=== PATIENT | male | born 1990 | race Caucasian/White ===

== ENCOUNTER 2019-09-28 17:28 | Emergency (ER) | payer OTHER, MEDICARE, SELFPAY ==
--- NOTE | ~2019-09-28 | XR_ITS ---
EXAMINATION: XR foot LT min 3V EXAM DATE: 09/28/2019 18:22 INDICATION: Initial encounter following injury, with pain of the left foot, first toe. Tripped. TECHNIQUE: Left foot dorsoplantar, lateral and oblique projections obtained and reviewed. There is n o prior study for comparison. FINDINGS: Left metatarsal bones unremarkable. Possible acute nondisplaced fracture at the base of the left first proximal phalanx at the MCP joint, please clinically correlate. There are no acute fra ctures or dislocations identified. There is no subcutaneous gas. The soft tissue is unremarkable. There are no radiopaque foreign bodies. Old left distal tibia and fibular fractures. IMPRESSION: Possible acute nondisplaced left first proximal phalangeal base fracture. Reviewed, dictated and finalized at location A. ICULTURAL THERAPIST IMPRESSION: Possible acute nondisplaced left first proximal phalangeal base fra cture.
[2019-09-28 18:03] VITALS: BP 122/79; PULSE 105; RESP 19; TEMP 37.2; O2SAT 100
--- NOTE | 2019-09-28 19:45 | ED.GENADULT ---
HPI - General Adult General Chief complaint: Extremity Injury, Lower Stated complaint: L foot injury Time Seen by Provider: 09/28/19 18:09 Source: patient Mode of arrival: ambulatory Limitations: no limitations History of Present Illness HPI narrative: Patient is a 29-year-old male who presents with injury to the left great toe that occurred after striking the foot a day ago patient notes aching pain with bruising and swelling worse with weightbearing and activity patient has been taking his home pain medications with relief denies other injuries or complaints Related Data Allergies Allergy/AdvReac Type Severity Reaction Status Date / Time metoclopramide [From Reglan] Allergy Hallucinati Verified 09/28/19 18:50 ng morphine Allergy Other Verified 09/28/19 18:49 Review of Systems Review of Systems: Narrative: CONSTITUTIONAL: Denies fever, chills, or sweats. SKIN: Positive for bruising and swelling MUSCULOSKELETAL: Positive for left great toe pain NEUROLOGIC: Denies numbness, or weakness. PMFSH Past Medical History Medical History (Updated 09/28/19 @ 19:48 by Thor Blackman PA-C) Chronic pain Social History Social History Gender identity (if verbalized by the patient): Male Exam Narrative: Exam Narrative: GENERAL: Well-appearing, well-nourished, and in no acute distress. HEAD: Normocephalic, atraumatic. EYES: PERRLA and EOMI. ENT: Nares clear, no rhinorrhea or epistaxis. Mucous membranes moist. EXTREMITIES: Bruising swelling and tenderness involving the left great toe SKIN: Warm, dry, no rash. NEURO: No focal deficits. Alert and oriented x3. Neurovascularly intact PSYCH: Normal mood and affect. Course Course Emergency Course: Patient in the room aware of case findings treatment plan and diagnosis agreeing to follow-up as directed or to return if symptoms worsen or concerns Vital Signs Vital signs: Vital Signs Temperature 99 F 09/28/19 18:03 Pulse Rate 105 H 09/28/19 18:03 Respiratory Rate 19 09/28/19 18:03 Blood Pressure 122/79 09/28/19 18:03 Pulse Oximetry 100 09/28/19 18:03 Temperature 99 F 09/28/19 18:03 Pulse Rate 105 H 09/28/19 18:03 Respiratory Rate 19 09/28/19 18:03 Blood Pressure 122/79 09/28/19 18:03 Pulse Oximetry 100 09/28/19 18:03 Medical Decision Making MDM Narrative Medical decision making narrative: Patients injury or pain is consistent with musculoskeletal etiology. No signs of neurological or vascular compromise on exam. Compartments and tisues are soft without signs of compartment syndrome. Pain is felt appropriate for further evaluation on an outpatient basis. Vital Signs Vital Signs: Vital Signs Temperature 99 F 09/28/19 18:03 Pulse Rate 105 H 09/28/19 18:03 Respiratory Rate 19 09/28/19 18:03 Blood Pressure 122/79 09/28/19 18:03 Pulse Oximetry 100 09/28/19 18:03 Temperature 99 F 09/28/19 18:03 Pulse Rate 105 H 09/28/19 18:03 Respiratory Rate 19 09/28/19 18:03 Blood Pressure 122/79 09/28/19 18:03 Pulse Oximetry 100 09/28/19 18:03 Imaging Data Radiologist's impression: ITS Impressions Foot X-Ray 09/28/19 18:27 IMPRESSION: Possible acute nondisplaced left first proximal phalangeal base fracture. Discharge Plan Discharge Clinical Impression: Fracture of toe Patient Disposition: Home, Self-Care Condition: Stable Instructions: Antibiotic Form, Toe Fracture (ED) Additional Instructions: Wear postop shoe with limited weight on the affected leg until able to bear weight without pain. Ice and elevate extremity. Pain medication as needed and directed. Follow up with your doctor for further care in the next 7 days. Return if symptoms worsen or concerns or any increase in redness swelling pain or fever over 100.5 Follow-up/Referrals: Donta,Corinna Luz MD [Primary Care Provider] -
--- NOTE | 2019-09-28 20:06 | PC.NURSE ---
Pt refused to wear surgical shoe to exit. Stated he will wear when he gets home.
== END 2019-09-28 20:06 | disposition home or self-care (01) ==
PROVIDERS: Emergency Provider Emergency Medicine; PCP Internal Medicine
DX: S92.415A Nondisplaced fracture of proximal phalanx of left great toe, initial encounter for closed fracture (principal); W22.8XXA Striking against or struck by other objects, initial encounter
CPT/HCPCS: 73630; 99284

== ENCOUNTER 2023-04-23 14:50 | Outpatient (CLI) | payer OTHER, MEDICARE, SELFPAY ==
[2023-04-23 15:59] LABS: Alanine Aminotransferase 22 U/L (6-50); Albumin Level 4.4 g/dL (3.5-5.1); Alkaline Phosphatase 68 U/L (38-126); Aspartate Amino Transferase 27 U/L (17-59); Blood Urea Nitrogen 11 mg/dL (9-20); Calcium 9.6 mg/dL (8.4-10.2); Carbon Dioxide > 40 mmol/L (22-30); Chloride 97 mmol/L (98-107); Estimated Glomerular Filt Rate > 60; Glucose 88 mg/dL (65-110); Sodium 140 mmol/L (137-145)
[2023-04-23 16:08] LABS: Appearance Urine Turbid (Clear); Bacteria Urine 4+ /hpf; Bilirubin Urine Negative (Negative); Blood Urine 1+ (Negative); Color Urine Dark Yellow (Yellow); Glucose Urine UA Negative (Negative); Ketones Urine Negative (Negative); Leukocyte Esterase Ur 3+ LEU/UL (NEGATIVE); Need Manual Microscopic Reviewed; Nitrate Urine Positive (Negative); Protein Urine Negative (Negative); Squamous Epithelial Cell Urine Occasional /hpf (Few); Urobilinogen Urine 0.2 mg/dL (<2.0); WBC Urine >100 /hpf (0-3); pH Urine 7.5 (5.0-9.0)
[2023-04-23 16:14] LABS: Add Urine Microscopic? YES
[2023-04-23 16:29] LABS: Thyroid Stimulating Hormone 0.065 uIU/mL (0.465-4.680)
[2023-04-23 19:43] LABS: Free T4 Free Thyroxine 0.98 ng/mL (0.78-2.19)
[2023-04-26 16:18] LABS: Prostate Specific Antigen 4.4 ng/mL (< OR = 4.0)
[2023-04-29 14:48] LABS: Osmolality, Urine 411 mOsm/kg (50-1200)
== END 2023-04-23 14:51 | disposition home or self-care (01) ==
LOC: ANHLAB 14:52
PROVIDERS: PCP Nurse Practitioner Family; Visit Provider Internal Medicine
DX: E34.9 Endocrine disorder, unspecified (principal); K58.9 Irritable bowel syndrome, unspecified; E27.1 Primary adrenocortical insufficiency; N39.0 Urinary tract infection, site not specified; S06.9XAA Unspecified intracranial injury with loss of consciousness status unknown, initial encounter; Z90.49 Acquired absence of other specified parts of digestive tract
CPT/HCPCS: 36415; 80053; 81001; 83935; 84153; 84439; 84443; 87077; 87086; 87186; G0103

== ENCOUNTER 2023-05-12 22:43 | Emergency (ER) | payer OTHER, MEDICARE, SELFPAY ==
[2023-05-12 22:51] VITALS: BP 126/90; PULSE 84; RESP 14; TEMP 36.7; O2SAT 99
--- NOTE | 2023-05-13 02:19 | PC.NURSE ---
Patient walked up to triage desk and stated that he was leaving
== END 2023-05-13 04:22 | disposition left against medical advice (07) ==
PROVIDERS: PCP Nurse Practitioner Family
DX: L89.139 Pressure ulcer of right lower back, unspecified stage (principal)
CPT/HCPCS: 99199

== ENCOUNTER 2023-10-15 15:36 | Outpatient (NON) | payer OTHER, MEDICARE, SELFPAY ==
[2023-10-15 16:07] LABS: Appearance Urine Turbid (Clear); Bacteria Urine 4+ /hpf; Bilirubin Urine Negative (Negative); Blood Urine Negative (Negative); Color Urine Yellow (Yellow); Glucose Urine UA Negative (Negative); Ketones Urine Negative (Negative); Leukocyte Esterase Ur 3+ LEU/UL (Negative); Nitrate Urine Positive (Negative); Protein Urine Negative (Negative); Specific Grav Ur 1.017 (1.001-1.035); Squamous Epithelial Cell Urine Occasional /hpf (Few); Urobilinogen Urine 0.2 mg/dL (<2.0); WBC Urine 51-100 /hpf (0-3)
[2023-10-15 16:09] LABS: Amorphous Sediment Urine Moderate
[2023-10-15 16:10] LABS: Add Urine Microscopic? YES
== END 2023-10-15 15:37 | disposition home or self-care (01) ==
LOC: ANHLAB 15:38
PROVIDERS: PCP Nurse Practitioner Family; Visit Provider Nurse Practitioner Family
DX: N39.0 Urinary tract infection, site not specified (principal)
CPT/HCPCS: 87077; 87086; 87088; 87186

== ENCOUNTER 2025-04-04 02:07 | Day surgery (SDC) | payer OTHER, MEDICARE, SELFPAY ==
[2025-03-28 09:33] VITALS: BMI 16.7
--- NOTE | 2025-04-04 09:33 | WPDANESEPPF ---
Anes - Initial Pre Proc Eval Procedure: Operation Date: 04/04/25 10:30 Proposed Procedures p Esophagogastroduodenoscopy - Justin Montilla MD Date/Time: 04/04/25 09:33 Surgeon: Justin Montilla MD Pre Op Diagnosis: Difficulty swallowing with asphyxiation Patient Data Age: 34 Gender: M Height: 1.8 m Weight: 54.54 kg Allergies Allergy/AdvReac Type Severity Reaction Status Date / Time fludrocortisone (From Allergy Unknown Verified 04/04/25 09:56 Florinef) metoclopramide (From Reglan) Allergy Hallucinati Verified 04/04/25 09:56 ng morphine Allergy Other Verified 04/04/25 09:56 sulfamethoxazole (From Allergy Unknown Verified 04/04/25 09:56 Bactrim) trimethoprim (From Bactrim) Allergy Unknown Verified 04/04/25 09:56 Home Medications ?Medication ?Instructions ?Recorded ?Confirmed ?Type cetirizine 10 mg capsule (Zyrtec) 10 mg PO DAILY 12/16/22 04/04/25 History hyoscyamine sulfate 0.125 mg 0.125 mg PO BID 12/16/22 04/04/25 History tablet (Levsin) multivitamin 1 tablet PO DAILY 12/16/22 04/04/25 History naloxone 4 mg/actuation nasal 1 spray intranasal Q2M #2 ea 07/07/23 04/04/25 Rx spray (Narcan) syringe with needle 3 mL 23 x 1 #50 ea 07/12/23 02/02/25 Rx (BD Eclipse Luer-Elaine) testosterone cypionate 200 mg/mL 100 mg (0.5 mL) IM WEEKLY #10 mL 09/27/23 03/28/25 Rx intramuscular oil (Depo-Testosterone) Held on 07/28/24. Instructions: Order Change insulin syringe-needle U-100 0.5 #100 ea 10/04/23 02/02/25 Rx mL 30 gauge x 1/2 (BD Insulin Syringe Ultra-Fine) desmopressin 4 mcg/mL injection 4 mcg IM DAILY #10 mL 02/29/24 04/04/25 Rx solution desmopressin 4 mcg/mL injection See Rx Instructions .Route 10/02/24 03/28/25 Rx solution .COMPLEX #10 mL sodium chloride 1,000 mg soluble See Rx Instructions .Route 01/01/25 04/04/25 Rx tablet .COMPLEX #270 tabs fluconazole 150 mg tablet 150 mg PO ONCE #2 tabs 01/23/25 03/28/25 Rx hydrocortisone 20 mg tablet See Rx Instructions .Route 01/23/25 04/04/25 Rx .COMPLEX #24 tabs dexamethasone sodium phosphate 4 See Rx Instructions .Route 02/02/25 03/28/25 Rx mg/mL injection solution .COMPLEX #25 mL hydrocortisone 10 mg tablet See Rx Instructions .Route 02/02/25 04/04/25 Rx .COMPLEX #270 tabs ondansetron HCl 4 mg tablet 4 mg PO Q8H PRN nausea and 02/02/25 03/28/25 Rx vomiting #30 tabs oxybutynin chloride 10 mg See Rx Instructions .Route 02/02/25 04/04/25 Rx tablet,extended release 24 hr .COMPLEX #180 tabs desmopressin 0.2 mg tablet See Rx Instructions .Route 02/19/25 04/04/25 Rx .COMPLEX #60 tabs gabapentin 800 mg tablet 800 mg PO BID #180 tabs 02/26/25 04/04/25 Rx fentanyl 25 mcg/hr transdermal 1 patch transdermal Q48H #15 ea 03/28/25 04/04/25 Rx patch hydrocodone 7.5 mg-acetaminophen 1 tablet PO BID PRN pain #60 tabs 03/28/25 04/04/25 Rx 325 mg tablet zafirlukast 20 mg tablet See Rx Instructions .Route 03/28/25 04/04/25 Rx .COMPLEX #180 tabs Patient hx anesthesia problems: none Family hx anesthesia problems: none Results Review: All pre-operative results and documents have been reviewed as part of the pre-operative evaluation. [facility] Past Medical History Medical History (Updated 04/03/25 @ 11:06 by Ricardo Castillo DO) Asthma POTS (postural orthostatic tachycardia syndrome) IBS (irritable bowel syndrome) Heart disease Migraines GERD (gastroesophageal reflux disease) Crohn's colitis Anxiety Allergies Chronic pain Surgical History Surgical History Hx of cholecystectomy Family History Family History Mother Asthma Heart disease Grandparent Alcoholism Cancer Diabetes mellitus Hypertension Heart disease Cerebrovascular accident Grandparent Diabetes mellitus Hypertension Heart disease Social History Social History Social History: 02/02/25 patient declined SDOH Years smoked: 3 Smoking status: Former smoker Tobacco type: cigarettes Alcohol intake: never Substance use: never Substance use type: does not use Lack of Transportation: YES Lack of Food: Sometimes True Current Housing: I Do Not Have Housing Concerned About Future Housing: No Difficulty Paying Gas/Electric Bills: No Difficulty Paying for Meds: No Currently Unemployed: No Education: Trade/Vocational Certificate Difficulty w/ Childcare or Family Care: No Living arrangements: with family Additional occupation/education comments: N/A Gender identity (if verbalized by the patient): Male Anes - Evkatherine Final PreProcedure Day of Procedure 04/04/25 09:33 Patient weight: normal Heart: regular rate and rhythm Lungs: clear to auscultation and normal air movement Airway: Mallampati scale class II Neurological: alert and oriented Last oral intake: >/= 8 hours ASA classification: III Emergent: no Anesthetic plan: proceed Anesthesia type and monitoring: general GIVS and standard monitoring Results Review: All pre-operative results and documents have been reviewed as part of the pre-operative evaluation. Informed Consent: The patient's anesthetic plan and its attendant risks and benefits were discussed with the patient/family/POA. Questions were solicited and answers provided to the satisfaction of the patient/family/POA.
[2025-04-04 10:00] VITALS: BP 118/74; PULSE 101; RESP 18; TEMP 36.7; O2SAT 97; BMI 15.0
[2025-04-04] MEDS: SIMETHICONE ORAL SUSPENSION 20 MG/0.3 ML 30 ML BOTTLE 1.8 ML PO (10:04)
[2025-04-04] MEDS: LACTATED RINGERS 1,000 ML 150 ML IV CONT (10:12)
--- NOTE | 2025-04-04 10:27 | PM.IMHP ---
H&P: HPI History of Present Illness Date/Time: 04/04/25 10:27 Chief Complaint: Dysphagia-weight loss Narrative: the patient has approximately 6 months with progressively worsening dysphagia to solids and liquids associated with the weight loss of approximately 40 lb. He does endorse some occasional heartburn. He is referred for EGD. Review of Systems Review of Systems: All systems reviewed & are unremarkable except as noted in HPI and below PMFSH Past Medical History Medical History (Updated 04/04/25 @ 10:29 by Justin Montilla MD) Asthma POTS (postural orthostatic tachycardia syndrome) IBS (irritable bowel syndrome) Heart disease Migraines GERD (gastroesophageal reflux disease) Anxiety Allergies Chronic pain Surgical History Surgical History Hx of cholecystectomy Family History Family History Mother Asthma Heart disease Grandparent Alcoholism Cancer Diabetes mellitus Hypertension Heart disease Cerebrovascular accident Grandparent Diabetes mellitus Hypertension Heart disease Social History Social History Social History: 02/02/25 patient declined SDOH Years smoked: 3 Smoking status: Former smoker Tobacco type: cigarettes Alcohol intake: never Substance use: never Substance use type: does not use Lack of Transportation: YES Lack of Food: Sometimes True Current Housing: I Do Not Have Housing Concerned About Future Housing: No Difficulty Paying Gas/Electric Bills: No Difficulty Paying for Meds: No Currently Unemployed: No Education: Trade/Vocational Certificate Difficulty w/ Childcare or Family Care: No Living arrangements: with family Additional occupation/education comments: N/A Gender identity (if verbalized by the patient): Male Meds Home Medications and Allergies Home Medications ?Medication ?Instructions ?Recorded ?Confirmed ?Type cetirizine 10 mg capsule (Zyrtec) 10 mg PO DAILY 12/16/22 04/04/25 History hyoscyamine sulfate 0.125 mg 0.125 mg PO BID 12/16/22 04/04/25 History tablet (Levsin) multivitamin 1 tablet PO DAILY 12/16/22 04/04/25 History naloxone 4 mg/actuation nasal 1 spray intranasal Q2M #2 ea 07/07/23 04/04/25 Rx spray (Narcan) syringe with needle 3 mL 23 x 1 #50 ea 07/12/23 02/02/25 Rx (BD Eclipse Luer-Elaine) testosterone cypionate 200 mg/mL 100 mg (0.5 mL) IM WEEKLY #10 mL 09/27/23 03/28/25 Rx intramuscular oil (Depo-Testosterone) Held on 07/28/24. Instructions: Order Change insulin syringe-needle U-100 0.5 #100 ea 10/04/23 02/02/25 Rx mL 30 gauge x 1/2 (BD Insulin Syringe Ultra-Fine) desmopressin 4 mcg/mL injection 4 mcg IM DAILY #10 mL 02/29/24 04/04/25 Rx solution desmopressin 4 mcg/mL injection See Rx Instructions .Route 10/02/24 03/28/25 Rx solution .COMPLEX #10 mL sodium chloride 1,000 mg soluble See Rx Instructions .Route 01/01/25 04/04/25 Rx tablet .COMPLEX #270 tabs fluconazole 150 mg tablet 150 mg PO ONCE #2 tabs 01/23/25 03/28/25 Rx hydrocortisone 20 mg tablet See Rx Instructions .Route 01/23/25 04/04/25 Rx .COMPLEX #24 tabs dexamethasone sodium phosphate 4 See Rx Instructions .Route 02/02/25 03/28/25 Rx mg/mL injection solution .COMPLEX #25 mL hydrocortisone 10 mg tablet See Rx Instructions .Route 02/02/25 04/04/25 Rx .COMPLEX #270 tabs ondansetron HCl 4 mg tablet 4 mg PO Q8H PRN nausea and 02/02/25 03/28/25 Rx vomiting #30 tabs oxybutynin chloride 10 mg See Rx Instructions .Route 02/02/25 04/04/25 Rx tablet,extended release 24 hr .COMPLEX #180 tabs desmopressin 0.2 mg tablet See Rx Instructions .Route 02/19/25 04/04/25 Rx .COMPLEX #60 tabs gabapentin 800 mg tablet 800 mg PO BID #180 tabs 02/26/25 04/04/25 Rx fentanyl 25 mcg/hr transdermal 1 patch transdermal Q48H #15 ea 03/28/25 04/04/25 Rx patch hydrocodone 7.5 mg-acetaminophen 1 tablet PO BID PRN pain #60 tabs 03/28/25 04/04/25 Rx 325 mg tablet zafirlukast 20 mg tablet See Rx Instructions .Route 03/28/25 04/04/25 Rx .COMPLEX #180 tabs Allergies Allergy/AdvReac Type Severity Reaction Status Date / Time fludrocortisone (From Allergy Unknown Verified 04/04/25 09:56 Florinef) metoclopramide (From Reglan) Allergy Hallucinati Verified 04/04/25 09:56 ng morphine Allergy Other Verified 04/04/25 09:56 sulfamethoxazole (From Allergy Unknown Verified 04/04/25 09:56 Bactrim) trimethoprim (From Bactrim) Allergy Unknown Verified 04/04/25 09:56 Vital Signs Vital Signs - 24 hr 04/04/25 10:00 Temperature 98.1 F Pulse Rate 101 H Respiratory Rate 18 Blood Pressure 118/74 Pulse Oximetry 97 Oxygen Delivery Room Air Exam Const: General: cooperative and healthy appearing Resp: Effort & Inspection: normal respiratory effort and able to speak in complete sentences Auscultation: clear to auscultation bilaterally Cardio: Rate: regular rate Rhythm: regular rhythm GI: Inspection: normal to inspection GI Palp: No No hepatosplenomegaly present Auscultation: normal bowel sounds Rectal Exam: deferred Skin: General skin exam: normal color Psych: Appearance: grossly normal Mental Status: mental status grossly normal Assessment and Plan Assessment and plan (1) Dysphagia: Code(s): R13.10 - Dysphagia, unspecified Status: Acute Assessment and Plan: The patient is deemed a good candidate for the procedure. differential diagnosis includes eosinophilic esophagitis, peptic stricture, achalasia or, less likely neoplasm. Consent signed. Will proceed.
--- NOTE | 2025-04-04 10:35 | S_PTH ---
PATIENT: Karen Tellez LOC: [facility]#:[id number] AGE/SX: 34/M ROOM: RE04/04/[address]: Justin Montilla MD : 1990 BED: DIS: 04/04/2025 SPEC #: [id number] RECD: 04/04/25 11:38 STATUS: GIANNI REQ #: [id number] BRAULIO: 04/04/25 10:[address]: Justin Montilla DEPT: [facility] Surgical RECD BY: Mitra Chavez ENTERED: 04/04/25 11:38 SP TYPE: Surgical OTHR DR: Rosio Lozano, OTIS Tissues: A - Esophageal Biopsy Procedures: Hematoxylin and Eosin Stain Gross and Microscopic Level 4
[2025-04-04 10:36] VITALS: BP 115/84; PULSE 82; RESP 21; O2SAT 100
[2025-04-04 10:46] VITALS: BP 95/56; PULSE 89; RESP 18; O2SAT 96
[2025-04-04 10:56] VITALS: BP 103/70; PULSE 76; RESP 22; O2SAT 97
== END 2025-04-04 11:05 | disposition home or self-care (01) ==
PROVIDERS: PCP Nurse Practitioner Family; Referring Provider Nurse Practitioner Family; Visit Provider Internal Medicine Gastroenterology
PROC: 0DJ08ZZ Inspection of Upper Intestinal Tract, Via Natural or Artificial Opening Endoscopic (ICD-10-PCS; CPT 43239; principal; 2025-04-04 10:30)
DX: K31.84 Gastroparesis (principal); K21.9 Gastro-esophageal reflux disease without esophagitis; F41.9 Anxiety disorder, unspecified; J45.909 Unspecified asthma, uncomplicated; G90.A Postural orthostatic tachycardia syndrome [POTS]; K58.9 Irritable bowel syndrome, unspecified; I51.9 Heart disease, unspecified; G89.29 Other chronic pain; Z79.4 Long term (current) use of insulin; Z79.891 Long term (current) use of opiate analgesic; Z90.49 Acquired absence of other specified parts of digestive tract; Z87.891 Personal history of nicotine dependence; Z80.9 Family history of malignant neoplasm, unspecified; Z82.49 Family history of ischemic heart disease and other diseases of the circulatory system
CPT/HCPCS: 43239; 88305; J7120